=== PATIENT | female | born 1975 | race Caucasian/White ===

== ENCOUNTER → 2018-02-09 | Outpatient (CLI) | payer BC | LOC: CARD 15:06 | PROVIDERS: ATTEND Family Medicine | DX: I20.9 Angina pectoris, unspecified (principal); I10 Essential (primary) hypertension | CPT/HCPCS: 93351 ==

== ENCOUNTER → 2018-02-09 | Outpatient (CLI) | payer BC ==
--- NOTE | 2018-01-26 14:54 | Consultation ---
CARDIOLOGY CONSULTATION DATE OF CONSULTATION: January 26, 2018 REQUESTING PHYSICIAN: Laith Darby REASON FOR CONSULTATION: Chest pain. HISTORY OF PRESENT ILLNESS: This is a 42-year-old woman with history of hypertension and morbid obesity who presents with complaints of chest pain and hypertension. She states that she was previously on antihypertensive therapy but after she lost a significant amount of weight, her blood pressure improved and she self-discontinued her therapies. However she has since regained this weight but did not restart her blood pressure medications. Approximately one week ago she began to feel chest pressure 2/10 in severity in her chest. This was associated with shortness of breath and lightheadedness. The pain however did not radiate. There was no edema, orthopnea, PND or palpitations. She presented to her primary care provider who ordered a stress test for further evaluation. REVIEW OF SYSTEMS: Negative except as per HPI. PAST MEDICAL HISTORY: Hypertension. PAST SURGICAL HISTORY: D and C. SOCIAL HISTORY: She smokes approximately 1 pack a month for the last 15 years. Drinks alcohol socially. No illicit drugs. FAMILY HISTORY: Pertinent for father with coronary artery disease. Vitals reviewed. PHYSICAL EXAMINATION GENERAL: Obese woman. Well-developed, well-nourished, no acute distress. HEENT: Normocephalic, atraumatic. Pupils equal. No scleral icterus. NECK: Supple. No thyromegaly or cervical lymphadenopathy. No carotid bruits. LUNGS: Clear to auscultation bilaterally. No wheezes or crackles. CARDIOVASCULAR: Normal rate, regular rhythm. No murmur. Normal S1, S2. ABDOMEN: Soft, nontender. EXTREMITIES: No edema. IMPRESSION 1. Chest pain. 2. Hypertension uncontrolled. RECOMMENDATIONS: We will proceed with exercise treadmill stress echo as requested for further ischemic evaluation. Thank you for this consult. We will continue to follow. Job#: [id number] KALA
== END ==
LOC: CARD 01-26 09:55
PROVIDERS: ATTEND Family Medicine
DX: I10 Essential (primary) hypertension (principal)
CPT/HCPCS: 93306; 93351